=== PATIENT | male | born 1950 | race Caucasian/White ===

== ENCOUNTER → 2017-02-15 | Outpatient (CLI) | payer MEDICARE ==
--- NOTE | 2017-02-15 10:09 | CT ---
EXAMINATION TYPE: CT sinus wo con DATE OF EXAM: 02/15/2017 COMPARISON: NONE HISTORY: chronic sinusitis per order. Headaches, sinus infection, and fainting spells per patient. CT DLP: 628 mGycm. Automated Exposure Control for Dose Reduction was Utilized. TECHNIQUE: CT scan of the sinuses is performed without contrast, axial images are obtained, coronal r eformatted images are also reviewed. FINDINGS: There is complete opacification of right maxillary sinus with extension into the maxillary antrum causing obstruction of right-sided ostiomeatal complex. No suspicious bony destruction is seen . There is complete heterogeneous is slightly hyperdense filling of right anterior ethmoid and right frontal sinus. There is patchy opacity and mucosal thickening in small caliber right sphenoid sinus. Left-sided sinuses are clear. The ostiomeatal complex is patent on the left. Nasal septum is deviated to left of midline. Visualized portion of mastoid air cells show no abnormal opacification. The globes are intact bilate rally. IMPRESSION: Significant right-sided paranasal sinus disease, underlying obstructing mass is not exclu ded.
== END | disposition home or self-care (01) ==
LOC: RADCTMAIN 08:51
PROVIDERS: ATTEND Otolaryngology
DX: J32.9 Chronic sinusitis, unspecified (principal)
CPT/HCPCS: 70486

== ENCOUNTER → 2017-02-27 | Outpatient (CLI) | payer MEDICARE | END | disposition home or self-care (01) | LOC: LABPAT 09:10 | PROVIDERS: ATTEND Otolaryngology | DX: Z01.810 Encounter for preprocedural cardiovascular examination (principal) | CPT/HCPCS: 93005 ==

== ENCOUNTER 2017-04-13 08:48 | Day surgery (SDC) | payer MEDICARE ==
[2017-04-06 11:24] VITALS: BMI 31.8
[~2017-04-13 08:48] MED LIST: ACETAMINOPHEN TAB 500 MG TAB PO ONE; DEXAMETHASONE SOD PHOSPHATE 10 MG/ML 1 ML VIAL IV ONE; DEXAMETHASONE SOD PHOSPHATE 4 MG/ML 1 ML VIAL IV ONE; FAMOTIDINE 20 MG/2 ML VIAL IV ONE; HYDROmorphone 1 MG/ML 1 ML SYRINGE IVP PRN; LACTATED RINGERS 1,000 ML IV SCH; ONDANSETRON 4 MG/2 ML VIAL IVP ONE; ceFAZolin 2 GM in SODIUM CHLORIDE 0.9% 100 ML IVPB ONE
[2017-04-13] MEDS: OXYMETAZOLINE 0.05% NASL SPRAY 1 SPRAY BOTTLE NASAL ONE ×5 (09:29→10:02)
[2017-04-13 09:37] LABS: Glucose,Whole Blood 110 mg/dL (75-99)
[2017-04-13] MEDS ORDERED: MIDAZOLAM 2 MG/2 ML VIAL ONE (11:09)
[2017-04-13] MEDS ORDERED: HYDROmorphone (PF) 1 MG/ML ONE (11:09)
[2017-04-13] MEDS ORDERED: SUCCINYLCHOLINE CHLORIDE 100 MG/5 ML SYR IV ONE (11:09)
[2017-04-13] MEDS ORDERED: PROPOFOL 10 MG/ML 20 ML VIAL IV ONE (11:09)
[2017-04-13] MEDS ORDERED: LIDOCAINE 1% INJ 10MG/ML (20 ML MDV) ONE (11:09)
[2017-04-13] MEDS ORDERED: fentaNYL (PF) 50 MCG/ML 2 ML AMP ONE (11:09)
[2017-04-13] MEDS ORDERED: EPINEPHrine 1 MG/ML 1 ML AMP IRRIGATION ONE (11:33)
[2017-04-13] MEDS ORDERED: FLUORESCEIN STRIPS 1 MG STRIP MISCELLANE ONE (11:34)
[2017-04-13] MEDS ORDERED: BACITRACIN 500 UNIT/GM OINT 28.4 GM TUBE TOPICAL ONE (11:36)
[2017-04-13] MEDS ORDERED: LIDOCAINE 2%-EPI 1:100,000 20 ML VIAL SUBMUCOSAL ONE ×2 (11:37)
[2017-04-13] MEDS ORDERED: LACTATED RINGERS 1,000 ML IV ONE (12:58)
[2017-04-13 13:23] VITALS: TEMP 97.2
--- NOTE | 2017-04-13 13:34 | P.OP ---
Date of Procedure: 04/13/17 Preoperative Diagnosis: Deviated nasal septum Bilateral hypertrophy of nasal turbinates with obstruction Right-sided sinonasal polyps Chronic sinusitis Postoperative Diagnosis: Same Procedure(s) Performed: Bilateral functional endoscopic sinus surgery with polypectomy Septoplasty Bilateral outfracture compression and submucosal resection of the inferior turbinates Implants: Anesthesia: JOSE MA Surgeon: Celso Fisher Estimated Blood Loss (ml): 30 Pathology: other (Sinonasal) Condition: stable Disposition: PACU Indications for Procedure: This patient has had long-standing problems with sinusitis. He has constant facial pain and pressure congestion anosmia etc. his pain is bilateral maxillary and bilateral frontal and distribution. He blows yellow-green out of his nose and has failed medical therapy including antibiotics, cortisone nasal sprays etc. etc. He tried every aybf-qhj-letaltw medication with no improvement. CAT scan evaluation shows infection of the frontal maxillary ethmoid and sphenoid sinus with significant polyposis on the right. Deviated nasal septum was quite impressive to the left and the inferior turbinates were large and obstructive. After long discussion and a failure of antibiotics and nasal sprays, we've decided to proceed forward with bilateral functional endoscopic sinus surgery, polypectomy, septoplasty and turbinate surgery. All risks, benefits, and alternative therapies were discussed in detail. Consent was obtained and all questions were answered. Operative Findings: Patient had widespread sinonasal disease with polyps on the right side with obstruction. Deviated nasal septum to the left was noted. Large obstructive inferior turbinates were seen. Description of Procedure: This patient was taken to the operative room and placed in the supine position. A general inhalation anesthetic was administered to the patient by the department of anesthesia with a functioning IV line in place. The patient was monitored throughout the entire case by the department of anesthesia. The eyes were taped shut for protection. The patient was placed in a slight reverse Trendelenburg position. The patient had previously utilize Afrin nasal spray preoperatively. The nose was evaluated and the septum lateral nasal wall and inferior turbinates were injected with lidocaine 1% with epinephrine 1 100,000 bilaterally. Approximately 10 minutes were allowed wait for full vasoconstrictive effects to take place. At this point a caudal incision was made over the caudal portion of the left septum down to the mucoperichondrium. A mucoperichondrial flap was elevated on the left side and dissection was carried with use of tunnels posteriorly. We then made a crossover incision through the cartilage to the contralateral side and for the mucoperichondrial flap development was performed to the extent of visualization on the contralateral side. After the cartilage was freed with use of several crosshatching incisions and removal of some redundant strips of septal cartilage, the septum was straightened and placed back in the midline. The septum was sutured fixated to the ovarian groove. Excellent straightening occurred and the septum was visibly straight. Incision was closed with a 40 rapid Vicryl. We utilized a running nonlocking fashion for closure of the incision. A quilting stitch was used to reapproximate the septal flaps with use of a 40 rapid Vicryl. We then entered the nose with a 0 and 30 Gutiérrez pham endoscope. Previous to this we did inject the lateral nasal wall and middle turbinate and uncinate process with lidocaine 1% with epinephrine 1 100,000. Approximately 10 minutes were allowed wait for full vasoconstrictive effects to take place. Intranasal polyps were noted on the right. They were noted on the right side only. The intranasal polyps were removed with use of a microdebrider from the right side. With use of a microdebrider and a pediatric backbiter, we took down the uncinate process bilaterally. We then opened the maxillary sinuses bilaterally. We utilized a microdebrider for this and entered the maxillary sinuses and removed diseased tissue and polypoid tissue on the right and diseased tissue on the left. We opened both maxillary sinuses bilaterally and removed diseased tissue bilaterally but we had polyps removed from the right maxillary sinus.. After the maxillary sinuses were opened and the diseased tissue and polyps were removed we entered the ethmoid bulla and with use of a microdebrider and up-biting Pedro, we remove the anterior septations and remove diseased tissue from the anterior ethmoids with direct visualization. We then followed the fovea frontalis through the basal lamella and into the posterior ethmoid air cells and did a total ethmoidectomy with removal of polypoid material we removed all ethmoid septations. Once the ethmoids cells were all taken down we then entered the sphenoid sinus medially and inferiorly underneath the inferior attachment of the superior turbinate. The sphenoid sinus was opened entered and diseased tissue were removed bilaterally. We removed polyps from the right side This was done with a microdebrider and Desire. We then entered the frontal sinuses with a giraffe and up-biting Desire entered on the agar nasi cells. We open the frontal sinuses and removed sinus tissue and polypoid tissue that was diseased the polyps were noted on the right diseased tissue is noted bilaterally. We did irrigate the frontal sinuses and found possible bilaterally.. We explored the frontal sinuses bilaterally. To summarize all sinuses were open all sinuses were explored and we remove diseased tissue and polyps from the sphenoid maxillary and frontal sinuses. Polyps were removed from the nose. Ethmoid sinuses were opened totally. Nasal pore and xerogel was inserted and minimal bleeding was encountered. We reinspected the skull base there is no signs of any orbital penetration or signs of any intracranial penetration. The sugical site was reinspected after the nasal pore was placed and no bleeding was seen. Attention was then paid to the inferior turbinates. The bilateral inferior turbinates were hypertrophic and obstructive. We entered the anterior portion of the inferior turbinates with use of a microdebrider. We remove bone and submucosal elements with use of a microdebrider bilaterally. The inferior turbinates underwent a submucosal resection with removal of submucosal tissue and bone. We obtained a much better and normal in size for breathing. The inferior turbinates were then outfractured and compressed with a Tagged nasal elevator. Excellent airway was obtained and was symmetric bilaterally. No bleeding was encountered. Intranasal splints were inserted and fixated at the end of the case. We utilized Gunderson nasal splints. There will be removed and the patient returns to the office.
[2017-04-13] MEDS ORDERED: HYDROmorphone 1 MG/ML 1 ML SYRINGE IVP ONE ×3 (13:43→13:57)
[2017-04-13 13:51] VITALS: RESP 16
[2017-04-13] MEDS ORDERED: HYDROcodone/APAP 5-325MG 1 EACH TAB PO ONE (14:38)
[2017-04-13 14:49] VITALS: BP 148/71; PULSE 62
== END 2017-04-13 15:17 | disposition home or self-care (01) ==
LOC: OR 08:48
PROVIDERS: ATTEND Otolaryngology
DX: J32.9 Chronic sinusitis, unspecified (principal); J33.8 Other polyp of sinus; J34.3 Hypertrophy of nasal turbinates; J34.2 Deviated nasal septum; E07.9 Disorder of thyroid, unspecified; Z79.82 Long term (current) use of aspirin; Z79.899 Other long term (current) drug therapy
CPT/HCPCS: 88305; 88331; 88300; 87070; 87205; 87075; 30520; 30140; 31267; 31255; 31288; 31276; J2250; J0171; J1100; J0690; J2405; J2001; J3010; J1170; J0330; J2704

== ENCOUNTER → 2017-06-17 | Outpatient (CLI) | payer MEDICARE ==
--- NOTE | 2017-06-17 17:09 | XR ---
EXAMINATION TYPE: XR sinus DATE OF EXAM: 06/17/2017 COMPARISON: NONE HISTORY: Frontal pain TECHNIQUE: 4 view paranasal sinus study FINDINGS: There appears to be mucosal thickening through the maxillary sinuses bilaterally. Suspiciou s air-fluid level may be within the left maxillary sinus. Frontal sinuses appear clear. Sphenoid sinu ses are clear. The right sphenoid sinus was previously opacified prior to the surgery based on the presurgical CT of 02/15/2017. Opacification through the right frontal sinus is not appreciated currently. IMPRESSION: 1. Suspicion of acute left maxillary sinusitis. Some chronic right maxillary sinusitis may be presen t. 2. Suspicious changes not clearly identified in the frontal region. CT paranasal sinus study can be p erformed for closer evaluation.
== END | disposition home or self-care (01) ==
LOC: RADXRMAIN 12:29
PROVIDERS: ATTEND Otolaryngology
DX: J32.1 Chronic frontal sinusitis (principal)
CPT/HCPCS: 70220

== ENCOUNTER → 2022-07-19 | Outpatient (CLI) | payer MEDICARE ==
--- NOTE | 2022-07-19 15:20 | CT ---
EXAMINATION TYPE: CT sinus wo con DATE OF EXAM: 07/19/2022 COMPARISON: 02/15/2017 HISTORY: CHRONIC SINUSITIS CT DLP: 642.50 mGycm. Automated Exposure Control for Dose Reduction was Utilized. TECHNIQUE: CT scan of the sinuses is performed without contrast, axial images are obtained, coronal r eformatted images are also reviewed. FINDINGS: Postsurgical change involving the ostium of the maxillary sinuses bilaterally with the mode rate mucosal thickening bilaterally greater on the left. No air-fluid levels. There is mild to moderate mucosal thickening of the ethmoid air cells. Sphenoid sinus is normal aerat ion. Frontal sinus of normal aeration. Calvarium intact. Orbits are symmetric. Nasopharynx is symmetric. Oropharynx symmetric. Dental artifa ct noted. Parotid glands are symmetric. Intracranial structures are symmetric.. The ostium of the bi lateral maxillary sinus is patent bilaterally on the coronal images. Visualized portion of mastoid air cells show no abnormal opacification. The globes are intact bilate rally. IMPRESSION: 1. Postsurgical changes with findings compatible with mild to moderate chronic appearing sinusitis. N o air-fluid levels to suggest acute sinusitis. 2. Ostium of the maxillary sinuses demonstrates postsurgical change which remains widely patent.
== END | disposition home or self-care (01) ==
LOC: RADCTMAIN 14:44
PROVIDERS: ATTEND Otolaryngology
DX: J32.9 Chronic sinusitis, unspecified (principal)
CPT/HCPCS: 70486

== ENCOUNTER 2023-01-12 09:51 | Day surgery (SDC) | payer MEDICARE ==
[2023-01-09 10:50] VITALS: BMI 35.2
[~2023-01-12 09:51] MED LIST changes: -ACETAMINOPHEN TAB 500 MG TAB PO ONE; -DEXAMETHASONE SOD PHOSPHATE 10 MG/ML 1 ML VIAL IV ONE; -DEXAMETHASONE SOD PHOSPHATE 4 MG/ML 1 ML VIAL IV ONE; -FAMOTIDINE 20 MG/2 ML VIAL IV ONE; +FAMOTIDINE 20 MG/2 ML VIAL IV PRN; -HYDROmorphone 1 MG/ML 1 ML SYRINGE IVP PRN; -LACTATED RINGERS 1,000 ML IV SCH; -ONDANSETRON 4 MG/2 ML VIAL IVP ONE; +ONDANSETRON 4 MG/2 ML VIAL IVP PRN; -ceFAZolin 2 GM in SODIUM CHLORIDE 0.9% 100 ML IVPB ONE; +metroNIDAZOLE-NS PMX 500 MG in SALINE 1 100ML.BAG IVPB PRN
[2023-01-12] MEDS ORDERED: DEXAMETHASONE SOD PHOSPHATE 4 MG/ML 1 ML VIAL IV ONE (10:11)
[2023-01-12] MEDS ORDERED: LACTATED RINGERS 1,000 ML IV SCH (10:11)
[2023-01-12] MEDS ORDERED: ONDANSETRON 4 MG/2 ML VIAL IVP ONE (10:11)
[2023-01-12] MEDS: OXYMETAZOLINE 0.05% NASL SPRAY 1 SPRAY BOTTLE EA NOSTRIL PRN ×5 (10:25→10:45)
[2023-01-12] MEDS ORDERED: PROPOFOL 10 MG/ML 20 ML VIAL IV ONE (11:55)
[2023-01-12] MEDS ORDERED: MIDAZOLAM 2 MG/2 ML VIAL ONE (11:55)
[2023-01-12] MEDS ORDERED: LIDOCAINE 2% INJ 20 MG/ML (2 ML VIAL) ONE (11:55)
[2023-01-12] MEDS ORDERED: fentaNYL (PF) 50 MCG/ML 2 ML AMP ONE (11:55)
[2023-01-12] MEDS ORDERED: SUCCINYLCHOLINE CHLORIDE 200 MG/10 ML VIAL IV ONE (11:55)
[2023-01-12] MEDS ORDERED: EPINEPHrine 1 MG/ML (MDV) 30 ML VIAL TOPICAL ONE ×2 (11:57→12:29)
[2023-01-12] MEDS ORDERED: LIDOCAINE 2%-EPI 1:100,000 20 ML VIAL SQ ONE ×2 (11:57→12:29)
[2023-01-12] MEDS ORDERED: FLUORESCEIN STRIPS 1 MG STRIP MISCELLANE ONE (12:29)
[2023-01-12] MEDS ORDERED: LACTATED RINGERS 1,000 ML IV ONE (12:51)
[2023-01-12 13:07] VITALS: TEMP 96.8
--- NOTE | 2023-01-12 13:09 | P.OP ---
Date of Procedure: 01/12/23 Preoperative Diagnosis: Chronic maxillary ethmoid sinusitis with polyposis Postoperative Diagnosis: Same Procedure(s) Performed: Functional endoscopic sinus surgery with total ethmoidectomy and maxillary antrostomies bilaterally with polypectomy Anesthesia: MAURA Surgeon: Celso Fisher Estimated Blood Loss (ml): 10 Pathology: other (Sinonasal) Condition: stable Disposition: PACU Indications for Procedure: Patient has chronic maxillary and ethmoid sinusitis with polypoid disease. He's failed medical therapy. Is dupexint with no improvement. His failed Flonase nasal spray, irrigations etc. and is here for recheck. Operative Findings: Patient was found have chronic sinusitis and polypoid degeneration the maxillary and ethmoid sinuses bilaterally Description of Procedure: Patient was taken to the operative room and placed in the supine position. A general inhalation anesthetic was administered the patient by mask and subsequently intubated with a cuffed endotracheal tube by the department of anesthesia with a functioning IV line in place. Patient was monitored throughout the entire case by the department of anesthesia. The nose was anesthetized with lidocaine 1% with epinephrine 1 100,010 minutes were allowed wait for full vasoconstrictive effects to take place. At this time we entered the maxillary sinuses underneath the middle turbinates and open up the maxillary sinuses with a Ulices we utilized a 0 Gutiérrez pham scopes throughout the entire procedure. After the x-ray sinuses were opened below the inferior turbinates bilaterally polyps and diseased tissue was removed from the floor of the maxillary sinuses bilaterally. We can we utilized a microdebrider for that procedure. We then entered the maxillary sinuses above the inferior turbinates and we remove diseased tissue bilaterally and suctioned very lip material from the maxillary sinuses with opening. After the maxillary sinuses were opened bilaterally and polypoid disease was removed we did a total ethmoidectomy with removal of polypoid disease. We removed polyps off the middle turbinates bilaterally. We sutured fixated to the middle turbinates to the septum and placed xerogel underneath the middle turbinates. We removed all ethmoid septations bilaterally and a total ethmoidectomy with removal of polypoid material xerogel was placed nasal pore was placed to hold the xerogel in place we then reinspected the skull base and the sinuses and the sinuses were opened and otherwise doing well. Patient was taken to postanesthesia recovery in excellent condition follow-up will be next week.
[2023-01-12] MEDS: HYDROmorphone 0.5 MG/0.5 ML SYRINGE IVP PRN ×3 (13:14→13:29)
[2023-01-12] MEDS: fentaNYL (PF) 50 MCG/ML 2 ML AMP IVP ONE ×3 (13:36→13:46)
[2023-01-12 14:19] VITALS: PULSE 69; RESP 18
[2023-01-12] MEDS ORDERED: Acetaminophen-Codeine 300-30mg TAB PO ONE (14:28)
[2023-01-12] MEDS ORDERED: Acetaminophen-Codeine 300-30mg TAB ONE (14:28)
[2023-01-12 14:40] VITALS: BP 136/72
== END 2023-01-12 15:16 | disposition home or self-care (01) ==
LOC: OR 09:51
PROVIDERS: ATTEND Otolaryngology
DX: J32.0 Chronic maxillary sinusitis (principal); J32.2 Chronic ethmoidal sinusitis; Z90.49 Acquired absence of other specified parts of digestive tract; Z98.890 Other specified postprocedural states; Z87.891 Personal history of nicotine dependence; E03.9 Hypothyroidism, unspecified; Z79.890 Hormone replacement therapy; Z79.899 Other long term (current) drug therapy
CPT/HCPCS: 88305; 31255; 31267; J0171; J2250; J0330; J1100; J0690; J2405; J3010; J2704; J1170; J2001

== ENCOUNTER 2023-10-20 06:46 | Day surgery (SDC) | payer MEDICARE ==
[2023-10-19 11:07] VITALS: BMI 34.5
[2023-10-20] MEDS ORDERED: MIDAZOLAM 2 MG/2 ML VIAL IV PRN (07:00)
[2023-10-20] MEDS ORDERED: HYDROmorphone 0.5 MG/0.5 ML SYRINGE IVP PRN (07:00)
[2023-10-20 07:44] VITALS: RESP 16
--- NOTE | 2023-10-20 07:48 | P.GSHP ---
History of Present Illness H&P Date: 10/20/23 Chief Complaint: Umbilical hernia 73-year-old female last seen in June. Patient with increasing size of umbilical hernia. Mild soreness there. No history of previous hernias. Past Medical History Past Medical History: Thyroid Disorder Additional Past Medical History / Comment(s): sinus problems, hypothyroidism History of Any Multi-Drug Resistant Organisms: None Reported Past Surgical History: Appendectomy, Joint Replacement Additional Past Surgical History / Comment(s): COLONOSCOPY. RT TKA WITH REVISION. BILAT LIVIER. SINUS SX Past Anesthesia/Blood Transfusion Reactions: No Reported Reaction Smoking Status: Former smoker - Past Family History Sister(s) Family Medical History: COPD Medications and Allergies Home Medications Medication Instructions Recorded Confirmed Type Levothyroxine Sodium [Synthroid] 200 mcg PO QAM 04/06/17 10/19/23 History Acetaminophen [Tylenol] 650 mg PO Q4H PRN 10/19/23 10/19/23 History Vit C/E/Zn/Coppr/Lutein/Zeaxan 1 cap PO DAILY 10/19/23 10/19/23 History [Preservision Areds 2 Softgel] Allergies Allergy/AdvReac Type Severity Reaction Status Date / Time environmental AdvReac Unknown Uncoded 10/20/23 07:24 Surgical - Exam Vital Signs Temp Pulse Resp BP Pulse Ox 97.5 F L 58 L 16 139/82 93 L 10/20/23 07:33 10/20/23 07:33 10/20/23 07:33 10/20/23 07:33 10/20/23 07:33 Physical exam: General: Well-developed, well-nourished HEENT: Normocephalic, sclerae nonicteric Abdomen: Nontender, nondistended, diastases recti, reducible small to moderate- sized umbilical hernia Extremities: No edema Neuro: Alert and oriented Assessment and Plan (1) Umbilical hernia Narrative/Plan: 73-year-old male with symptomatic umbilical hernia. Will proceed with open repair umbilical hernia with mesh. Risks of bleeding, infection, recurrence, bladder and bowel injury, numbness, nerve injury were discussed with the patient. The patient understands and wishes to proceed. Current Visit: Yes Status: Acute Code(s): K42.9 - UMBILICAL HERNIA WITHOUT OBSTRUCTION OR GANGRENE SNOMED Code(s): 812018624
[2023-10-20] MEDS: MIDAZOLAM 2 MG/2 ML VIAL IVP ONE (08:15)
[2023-10-20] MEDS: LACTATED RINGERS 1,000 ML IV SCH (08:28)
[2023-10-20] MEDS: ONDANSETRON 4 MG/2 ML VIAL IVP ONE (08:29)
[2023-10-20] MEDS: DEXAMETHASONE SOD PHOSPHATE 4 MG/ML 1 ML VIAL IV ONE (08:29)
[2023-10-20] MEDS: ACETAMINOPHEN TAB 500 MG TAB PO PRN (08:29)
[2023-10-20] MEDS: HEPARIN SODIUM,PORCINE 5,000 UNIT/ML 1 ML VIAL SQ PRN (08:29)
[2023-10-20] MEDS ORDERED: PROPOFOL 10 MG/ML 20 ML VIAL IV ONE (08:57)
[2023-10-20] MEDS ORDERED: ROPIVACAINE 5 MG/ML 30 ML VIAL ONE (08:57)
[2023-10-20] MEDS ORDERED: NEOSTIGMINE 1 MG/ML 10 ML VIAL ONE (08:57)
[2023-10-20] MEDS ORDERED: ROCURONIUM 10 MG/ML (5 ML VIAL) IV ONE (08:57)
[2023-10-20] MEDS ORDERED: SUCCINYLCHOLINE CHLORIDE 200 MG/10 ML VIAL IV ONE (08:57)
[2023-10-20] MEDS ORDERED: DEXAMETHASONE SOD PHOSPHATE 4 MG/ML 1 ML VIAL ONE (08:57)
[2023-10-20] MEDS ORDERED: GLYCOPYRROLATE 0.2 MG/ML 2 ML VIAL ONE (08:57)
[2023-10-20] MEDS ORDERED: LIDOCAINE 1% INJ 10MG/ML (20 ML MDV) ONE (08:57)
[2023-10-20] MEDS ORDERED: fentaNYL (PF) 50 MCG/ML 2 ML AMP ONE (08:57)
[2023-10-20] MEDS: BUPIVACAINE (PF) 0.25% 30 ML VIAL SQ ONE ×2 (09:16→09:45)
--- NOTE | 2023-10-20 10:23 | P.OP ---
Date of Procedure: 10/20/23 Procedure(s) Performed: PREOPERATIVE DIAGNOSIS: Reducible umbilical hernia POSTOPERATIVE DIAGNOSIS: Same PROCEDURE: Open repair of umbilical hernia with mesh SURGEON: Dr. Sepulveda ANESTHESIA: General OPERATIVE PROCEDURE DETAILS: The patient was placed in the operating table in the supine position. A right sided periumbilical incision was made using the scalpel. The subcutaneous tissues were dissected bluntly and with cautery. The hernia sac was identified. The umbilical attachments to the fascia were divided using electrocautery. The hernia sac was excised. The defect in the fascia measured 12 x 6 mm. The fat overlying the fascia was dissected. No additional defects were seen. The preperitoneal space was then dissected using blunt dissection and electrocautery. The 4.3 cm ventral ex mesh was placed beneath the fascia and sutured in place using trans-fascial 0 Ethibond sutures. The defect was closed using interrupted vest over pants 0 Ethibond mattress sutures. The subcutaneous tissues were reapproximated using inverted 2-0 & 3-0 Vicryl sutures. The umbilicus was tacked back down to the fascia using a 2-0 Vicryl suture. The skin was closed using 4-0 Monocryl sutures. Skin glue and sterile dressings were then applied. HERNIA CHARACTERISTICS: Length: 6 mm Width: 12 mm Type: Umbilical TYPE OF MESH USED: Ventral X LOCATION OF MESH: [place] FIXATION: 0 Ethibond PREOPERATIVE DISCUSSION ON SMOKING CESSASTION: Yes PREOPERATIVE DISCUSSION ON MORBID OBESITY: Yes PREOPERATIVE DISCUSSION ON APPROPRIATE USE OF NARCOTIC USE: Yes PREOPERATIVE EDUCATION: Multi Modal, Smoking Cessation and Weight Loss with BMI over 35. DISPOSITION: Stable to recovery room
[2023-10-20 10:29] VITALS: TEMP 98
[2023-10-20] MEDS: LACTATED RINGERS 1,000 ML IV ONE (11:05)
[2023-10-20] MEDS ORDERED: ACETAMINOPHEN TAB 325 MG TAB PO SCH (12:00)
[2023-10-20 12:37] VITALS: BP 140/75; PULSE 67
[2023-10-20] MEDS ORDERED: IBUPROFEN 600 MG TAB PO SCH (13:30)
== END 2023-10-20 12:09 | disposition home or self-care (01) ==
LOC: OR 06:46
PROVIDERS: ATTEND Surgery
DX: K42.9 Umbilical hernia without obstruction or gangrene (principal); E03.9 Hypothyroidism, unspecified; Z79.890 Hormone replacement therapy; Z87.891 Personal history of nicotine dependence; Z90.49 Acquired absence of other specified parts of digestive tract
CPT/HCPCS: 64488; 49591; C1781; J2250; J0330; J1644; J1100; J2710; J0690; J2405; J2001; J3010; J2795; J2704; J0665

== ENCOUNTER 2024-01-29 18:18 | Emergency (ER) | payer MEDICARE ==
--- NOTE | 2024-01-29 18:54 | ED ---
Fall HPI - General Source: patient, RN notes reviewed Mode of arrival: wheelchair Limitations: no limitations <Eva Aguirre - Last Filed: 01/29/24 18:53> <Rafael Anthony - Last Filed: 01/30/24 01:56> - General Chief Complaint: Fall Stated Complaint: Fall/Back Pain Time Seen by Provider: 01/29/24 18:53 - History of Present Illness Initial Comments: Quick note: 73-year-old male presented to ER with a chief complaint of a fall. Patient reports approximately 1 week ago he was balancing on a telephone pole and lost his balance. He states he fell on his right side. He denies any head injury or loss of consciousness. Denies blood thinner use. Patient reports most pain in lumbar spine and right ribs. Patient denies any shortness of breath, saddle paresthesias, bowel or bladder incontinence. (Eva Aguirre) Patient is a 73-year-old male who presents emergency department after a fall. Originally seen as a quick note. Mechanical fall, fell 7 to 10 days ago. Approximately 3 feet off the ground. Landed on his right side. Since that time has had severe lower back pain, right rib pain, right abdominal pain. He is not on blood thinners. No loss of consciousness. Did not hit his head. Presents because the pain is not improving. Presents for further evaluation at this ti nh. Obvious bruising. Pain worse with movement. (Rafael Anthony) - Related Data Home Medications Medication Instructions Recorded Confirmed Levothyroxine Sodium [Synthroid] 200 mcg PO QAM 04/06/17 10/19/23 Acetaminophen [Tylenol] 650 mg PO Q4H PRN 10/19/23 10/19/23 Vit C/E/Zn/Coppr/Lutein/Zeaxan 1 cap PO DAILY 10/19/23 10/19/23 [Preservision Areds 2 Softgel] Previous Rx's Medication Instructions Recorded oxyCODONE HCL [OxyIR] 5 mg PO Q6H PRN 3 Days #6 tab 10/20/23 Lidocaine 5% Patch [Lidoderm 5% 1 patch TOPICAL DAILY PRN 14 Days 01/30/24 Patch] #14 patch methocarbamoL [Robaxin-750] 1,500 mg PO TID PRN 7 Days #42 tab 01/30/24 Allergies Allergy/AdvReac Type Severity Reaction Status Date / Time environmental AdvReac Unknown Uncoded 01/29/24 18:28 Review of Systems ROS Other: All systems not noted in ROS Statement are negative. <Eva Aguirre - Last Filed: 01/29/24 18:53> ROS Other: All systems not noted in ROS Statement are negative. <Rafael Anthony - Last Filed: 01/30/24 01:56> ROS Statement: Those systems with pertinent positive or pertinent negative responses have been documented in the HPI. Review of Systems: CONST: Denies fever EYES: Denies blurry vision ENT: Denies nasal congestion C/V: Denies Chest pain RESP: Denies shortness of breath GI: Denies abdominal pain : Denies dysuria SKIN: Denies rash. MSK: Endorses joint pain NEURO: Denies headache (Rafael Anthony) Past Medical History Past Medical History: Thyroid Disorder Additional Past Medical History / Comment(s): sinus problems, hypothyroidism History of Any Multi-Drug Resistant Organisms: None Reported Past Surgical History: Appendectomy, Joint Replacement Additional Past Surgical History / Comment(s): COLONOSCOPY. RT TKA WITH REVISION. BILAT LIVIER. SINUS SX Past Anesthesia/Blood Transfusion Reactions: No Reported Reaction Past Psychological History: No Psychological Hx Reported Smoking Status: Former smoker Past Alcohol Use History: None Reported Past Drug Use History: None Reported - Past Family History Sister(s) Family Medical History: COPD <Eva Aguirre - Last Filed: 01/29/24 18:53> General Exam Limitations: no limitations <Eva Aguirre - Last Filed: 01/29/24 18:53> <Rafael Anthony - Last Filed: 01/30/24 01:56> - General Exam Comments Initial Comments: Visual Physical Exam Vital signs reviewed General: Well-appearing, nontoxic, no acute distress. Head: Normocephalic, atraumatic Eyes: PERRLA, EOMI ENT: Airway patent Chest: Nonlabored breathing Skin: No visual rash, normal skin tone Neuro: Alert and oriented 3 Musculoskeletal: No gross abnormalities (Eva Aguirre) General: Appears in mild to moderate distress secondary to pain. HEAD: Normal with no signs of head trauma. Negative Pearson sign. Negative raccoon eyes. EYES: PERRLA, EOMI, conjunctiva normal, no discharge. ENT: Hearing grossly intact, normal oropharynx. RESPIRATORY: Clear breath sounds bilaterally. No wheezes, rales, or rhonchi. C/V: Regular rate and rhythm. S1 and S2 auscultated, no edema, peripheral pulses 2+ and intact throughout ABD: Abd is soft, nontender, nondistended EXT: Normal range of motion, no obvious deformity. Tenderness palpation over the anterior right ribs, paraspinal muscles of the lower lumbar spine and somewhat in the mid lumbar spine. No step-offs or deformities of the spine appreciated. No T or C-spine tenderness to palpation. Some right-sided abdominal discomfort with no skin changes. SKIN: No rashes or lesions observed on exposed skin. NEURO: Alert and oriented x 4. Cranial nerves II-XII intact. No focal sensory or strength deficits. GCS of 15. (Rafael Anthony) Course Vital Signs 01/29/24 01/29/24 01/30/24 18:24 22:24 00:22 Temperature 98 F Pulse Rate 61 48 L 58 L Respiratory 18 18 16 Rate Blood Pressure 137/80 164/88 167/91 O2 Sat by Pulse 94 L 97 96 Oximetry Medical Decision Making <Eva Aguirre - Last Filed: 01/29/24 18:53> - Lab Data Result diagrams: 01/29/24 21:19 01/29/24 21:19 <Rafael Anthony - Last Filed: 01/30/24 01:56> - Medical Decision Making I performed the quick note portion of this chart. Electronically signed by Eva Aguirre PA-C (Eva Aguirre) Was pt. sent in by a medical professional or institution ([facility], SECONDARY SET UP MAN, urgent care, hospital, or halfway...) When possible be specific @ -No Did you speak to anyone other than the patient for history (EMS, parent, family, police, friend...)? What history was obtained from this source @ -No Did you review nursing and triage notes (agree or disagree)? Why? @ -I reviewed and agree with nursing and triage notes Were old charts reviewed (outside hosp., previous admission, EMS record, old EKG, old radiological studies, urgent care reports/EKG's, halfway records)? Report findings @ -No old charts were reviewed Differential Diagnosis (chest pain, altered mental status, abdominal pain women, abdominal pain men, vaginal bleeding, weakness, fever, dyspnea, syncope, headache, dizziness, GI bleed, back pain, seizure, CVA, palpatations, mental health, musculoskeletal)? @ -Differential Musculoskeletal Muscular strain, contusion, ligament sprain, fracture, arthritis, septic arthritis, bursitis, cellulitis, muscle spasm, nerve compression, DVT, arterial occlusion, herpes zoster, electrolyte abnormality, tumor.... This is not meant to be in all inclusive list EKG interpreted by me (3pts min.). @ -None done X-rays interpreted by me (1pt min.). @ -Rib and chest x-ray unremarkable. Lumbar spine x-ray unremarkable. No obvious acute injuries. Degenerative changes of the lumbar spine are present. CT interpreted by me (1pt min.). @ -CT chest abdomen pelvis eventually read as showing a T7 compression fracture and chronic left rib fracture but no obvious acute process otherwise. U/S interpreted by me (1pt. min.). @ -None done What testing was considered but not performed or refused? (CT, X-rays, U/S, labs)? Why? @ -None What meds were considered but not given or refused? Why? @ -None Did you discuss the management of the patient with other professionals (professionals i.e. , PA, SECONDARY SET UP MAN, lab, RT, psych nurse, social sciences professor, aircraft machinist helper, teacher, attendance officer, case consultant)? Give summary @ -No Was smoking cessation discussed for >3mins.? @ -No Was critical care preformed (if so, how long)? @ -No Were there social determinants of health that impacted care today? How? (Homelessness, low income, unemployed, alcoholism, drug addiction, transportation, low edu. Level, literacy, decrease access to med. care, fdc, rehab)? @ -No Was there de-escalation of care discussed even if they declined (Discuss DNR or withdrawal of care, Hospice)? DNR status @ -No What co-morbidities impacted this encounter? (DM, HTN, Smoking, COPD, CAD, Cancer, CVA, ARF, Chemo, Hep., AIDS, mental health diagnosis, sleep apnea, morbi d obesity)? @ -None Was patient admitted / discharged? Hospital course, mention meds given and rout e, prescriptions, significant lab abnormalities, going to OR and other pertinent info. @ -Based on the patient's presentation and physical exam, due to the patient's severe pain, I did recommend CT imaging at this time. He was in agreement this plan. He will receive IV analgesia medications as well as basic labs. Patient was in agreement this plan. Vital signs are within acceptable limits. Laboratory studies remarkable for mild anemia. Remainder the labs unremarkable.Laboratory studies unremarkable. Discussed the results of imaging which shows the compression fracture at T7. Discussed he probably also has some rib contusions on the right side. Compression fracture is nonoperative considering there is no evidence of retropulsion. He expressed understanding. I will Provide him contact info for follow-up with orthopedics as well as analgesia medications for home but recommended follow-up with PCP. Will also be given an incentive spirometer for rib contusions. He was in agreement this plan. Vital signs within acceptable limits. I will provide the patient with a prescription for starter pack of Tylenol 3, Robaxin, lidocaine patches. I instructed the patient to follow up with their PCP in the next 1-3 days. I provided contact information for follow up with orthopedics. I explained that the patient should return to the emergency department if they experience any worsening symptoms. Strict return precautions were discussed with the patient. The patient expressed understanding of these instructions. I answered all questions that the patient had. The patient was dis charged home in good condition with their prescriptions and follow up information. Undiagnosed new problem with uncertain prognosis? @ -No Drug Therapy requiring intensive monitoring for toxicity (Heparin, Nitro, Insulin, Cardizem)? @ -No Were any procedures done? @ -No Diagnosis/symptom? @ -Fall, T7 compression fracture, right-sided rib contusions Acute, or Chronic, or Acute on Chronic? @ -Acute Uncomplicated (without systemic symptoms) or Complicated (systemic symptoms)? @ -Complicated Side effects of treatment? @ -None Exacerbation, Progression, or Severe Exacerbation] @ -No Poses a threat to life or bodily function? @ -Unlikely (Rafael Anthony) - Lab Data Lab Results 01/29/24 01/29/24 01/29/24 Range/Units 21:19 21:19 21:19 WBC 3.8 (3.8-10.6) k/uL RBC 3.33 L (4.30-5.90) m/uL Hgb 11.6 L (13.0-17.5) gm/dL Hct 34.1 L (39.0-53.0) % MCV 102.5 H (80.0-100.0) fL MCH 34.8 (25.0-35.0) pg MCHC 34.0 (31.0-37.0) g/dL RDW 14.5 (11.5-15.5) % Plt Count 202 (150-450) k/uL MPV 8.4 Neutrophils % 56 % Lymphocytes % 35 % Monocytes % 3 % Eosinophils % 4 % Basophils % 1 % Neutrophils # 2.2 (1.3-7.7) k/uL Lymphocytes # 1.3 (1.0-4.8) k/uL Monocytes # 0.1 (0-1.0) k/uL Eosinophils # 0.1 (0-0.7) k/uL Basophils # 0.0 (0-0.2) k/uL Macrocytosis Slight PT 13.0 H (10.0-12.5) sec INR 1.2 H (<1.2) APTT 29.6 (22.0-30.0) sec Sodium 139 (137-145) mmol/L Potassium 4.3 (3.5-5.1) mmol/L Chloride 103 (98-107) mmol/L Carbon Dioxide 29 (22-30) mmol/L Anion Gap 7 mmol/L BUN 18 (9-20) mg/dL Creatinine 1.14 (0.66-1.25) mg/dL Est GFR (CKD-EPI)AfAm 73 (>60 ml/min/1.73 sqM) Est GFR (CKD-EPI)NonAf 63 (>60 ml/min/1.73 sqM) Glucose 92 (74-99) mg/dL Calcium 9.9 (8.4-10.2) mg/dL Disposition <Eva Aguirre - Last Filed: 01/29/24 18:53> Is patient prescribed a controlled substance at d/c from ED?: No Time of Disposition: 01:53 <Rafael Anthony - Last Filed: 01/30/24 01:56> Clinical Impression: Fall, Compression fracture of T7 vertebra, Contusion of rib on right side Disposition: HOME SELF-CARE Condition: Good Instructions (If sedation given, give patient instructions): Fall Prevention f or Older Adults (ED), Vertebral Compression Fracture (ED), Rib Contusion (ED) Prescriptions: Lidocaine 5% Patch [Lidoderm 5% Patch] 1 patch TOPICAL DAILY PRN 14 Days #14 patch PRN Reason: Pain methocarbamoL [Robaxin-750] 1,500 mg PO TID PRN 7 Days #42 tab PRN Reason: Pain Referrals: Gualberto Echols DO [Primary Care Provider] - 1-2 days Ana Valdovinos DO [Doctor of Osteopathic Medicine] - 1-2 days
--- NOTE | 2024-01-29 19:59 | XR ---
EXAMINATION TYPE: XR ribs RT w pa chest xray DATE OF EXAM: 01/29/2024 7:51 PM CLINICAL INDICATION:Male, 73 years old with history of fall and pain; [facility] COMPARISON: None TECHNIQUE: XR ribs RT w pa chest xray; Frontal and oblique views of the ribs with frontal chest radio graph. FINDINGS: The ribs have a normal appearance. No evidence of fracture. Overall, the lungs are clear. The cardiac silhouette is normal in size. The remaining osseous structures are intact. IMPRESSION: No displaced rib fracture visualized.
--- NOTE | 2024-01-29 20:01 | XR ---
EXAMINATION TYPE: XR lumbar spine 2 or 3V DATE OF EXAM: 01/29/2024 7:51 PM CLINICAL INDICATION:Male, 73 years old with history of fall and pain; COMPARISON: None TECHNIQUE: XR lumbar spine 2 or 3V - Frontal, lateral and coned in L5-S1 lateral views of the spine. FINDINGS: No evidence of any acute osseous pathology. No evidence of loss of vertebral body height i s seen. There is grade 1 anterolisthesis of L4 and L5. Alignment of the lumbar vertebral bodies. Scat tered disc space narrowing. Multilevel marginal osteophyte formation throughout the visualized spine. There is facet joint arthropathy throughout the spine. Scattered at least mild neural foraminal sten osis. Atherosclerosis of the arterial vascular IMPRESSION: 1. No acute fracture. 2. Mild to moderate multilevel disc degeneration.
[2024-01-29] MEDS: MORPHINE SULFATE 4 MG/ML SYRINGE IVP STA (21:24)
[2024-01-29] MEDS: SODIUM CHLORIDE 0.9% 1,000 ML IV STA (21:25)
[2024-01-29 22:06] LABS: INR 1.2 (<1.2); Partial Thromboplastin Time 29.6 sec (22.0-30.0)
[2024-01-29 22:10] LABS: African American GFR (CKD) 73 (>60 ml/min/1.73 sqM); Anion Gap 7 mmol/L; Blood Urea Nitrogen 18 mg/dL (9-20); Calcium 9.9 mg/dL (8.4-10.2); Carbon Dioxide 29 mmol/L (22-30); Chloride 103 mmol/L (98-107); Glucose 92 mg/dL (74-99); Non-African American GFR(CKD) 63 (>60 ml/min/1.73 sqM); Potassium 4.3 mmol/L (3.5-5.1); Sodium 139 mmol/L (137-145)
[2024-01-29 22:12] LABS: Basophils % (A) 1 %; Eosinophils # (A) 0.1 k/uL (0-0.7); Eosinophils % (A) 4 %; HCT 34.1 % (39.0-53.0); HGB 11.6 gm/dL (13.0-17.5); Lymphocytes # (A) 1.3 k/uL (1.0-4.8); Lymphocytes % (A) 35 %; MCH 34.8 pg (25.0-35.0); MCV 102.5 fL (80.0-100.0); Macrocytosis Slight; Mean Platelet Volume 8.4; Monocytes # (A) 0.1 k/uL (0-1.0); Monocytes % (A) 3 %; Neutrophils # (A) 2.2 k/uL (1.3-7.7); Neutrophils % (A) 56 %; Platelet Count 202 k/uL (150-450); RBC 3.33 m/uL (4.30-5.90); RDW 14.5 % (11.5-15.5); WBC 3.8 k/uL (3.8-10.6)
[2024-01-29] MEDS: HYDROmorphone 1 MG/ML 1 ML SYRINGE IVP STA (23:27)
[2024-01-30 00:26] VITALS: RESP 16
[2024-01-30] MEDS: HYDROmorphone 1 MG/ML 1 ML SYRINGE IVP STA (01:22)
--- NOTE | 2024-01-30 01:36 | CT ---
EXAM: CT Chest With Intravenous Contrast CLINICAL HISTORY: Fall, continued abd pain and rib pain TECHNIQUE: Axial computed tomography images of the chest with intravenous contrast. CTDI is 17.2 mGy and DLP is 1304 mGy-cm. This CT exam was performed using one or more of the following dose reduction techniques: automated exposure control, adjustment of the mA and/or kV according to patient size, and/or use of iterative reconstruction technique. COMPARISON: No relevant prior studies available. FINDINGS: Lungs: Minimal dependent atelectasis. No focal infiltrate. Pleural space: Unremarkable. No pneumothorax. No pleural effusion. Heart: Unremarkable. No cardiomegaly. No significant pericardial effusion. Coronary artery calcifications. Bones/joints: Deformity of the anterior aspect of the left eighth rib with possible periosteal reaction, consistent with a minimally displaced subacute or older fracture (sagittal series 203 image 126). Moderate approximately 40% anterior superior wedge compression fracture of the T7 vertebral body without posterior retropulsion (sagittal series 203 image 77) with superior sclerosis suggesting an acute fracture. Soft tissues: Unremarkable. Vasculature: Atherosclerotic vascular calcifications. No thoracic aortic aneurysm or dissection. Lymph nodes: Unremarkable. No enlarged lymph nodes. IMPRESSION: Moderate approximately 40% anterior superior wedge compression fracture of the T7 vertebral body without posterior retropulsion with superior sclerosis suggesting an acute fracture. Deformity of the anterior aspect of the left eighth rib with possible periosteal reaction, consistent with a minimally displaced subacute or older fracture. No definite acute right-sided rib fracture identified. EXAM: CT Abdomen and Pelvis With Intravenous Contrast CLINICAL HISTORY: Fall, continued abd pain and rib pain TECHNIQUE: Axial computed tomography images of the abdomen and pelvis with intravenous contrast. CTDI is 17 mGy and DLP is 1992.9 mGy-cm. This CT exam was performed using one or more of the following dose reduction techniques: automated exposure control, adjustment of the mA and/or kV according to patient size, and/or use of iterative reconstruction technique. COMPARISON: No relevant prior studies available. FINDINGS: ABDOMEN: Liver: Unremarkable. No mass. Gallbladder and bile ducts: Unremarkable. No calcified stones. No ductal dilation. Pancreas: Unremarkable. No mass. No ductal dilation. Spleen: Unremarkable. No splenomegaly. Adrenals: Unremarkable. No mass. Kidneys and ureters: Small left renal cyst. No obstructive uropathy. No obstructing renal or ureteral calculi. No hydronephrosis or hydroureter. Stomach and bowel: Bilateral fat-containing inguinal hernias. No obstruction or ileus. Left and sigmoid colon diverticulosis without evidence for diverticulitis. PELVIS: Appendix: No findings to suggest acute appendicitis. Bladder: Unremarkable. No mass. Reproductive: Unremarkable as visualized. ABDOMEN and PELVIS: Intraperitoneal space: No free air. No free fluid. Bones/joints: No acute fracture. Degenerative changes of the spine. Metal artifact from bilateral hip replacements. Soft tissues: Unremarkable. Vasculature: Atherosclerotic vascular calcifications. No abdominal aortic aneurysm. Lymph nodes: Unremarkable. No enlarged lymph nodes. IMPRESSION: No acute post-traumatic abnormality. Non-acute findings as noted above.
[2024-01-30] MEDS: ACET/COD 300 MG/30 MG STARTER PACK 6 TAB BTL PO STA (02:03)
[2024-01-30 02:10] VITALS: BP 157/77; PULSE 55; TEMP 98.2
== END 2024-01-30 02:09 | disposition home or self-care (01) ==
LOC: EC 18:18
DX: S22.060A Wedge compression fracture of T7-T8 vertebra, initial encounter for closed fracture (principal); S20.211A Contusion of right front wall of thorax, initial encounter; Z91.09 Other allergy status, other than to drugs and biological substances; Z87.891 Personal history of nicotine dependence; W18.30XA Fall on same level, unspecified, initial encounter
CPT/HCPCS: 99285; 96374; 96375; 96376; 96361; 36415; 80048; 85025; 85610; 85730; 71101; 72100; 71260; 74177; J2270; J1170; Q9967

== ENCOUNTER 2024-04-26 22:45 | Emergency (ER) | payer MEDICARE ==
--- NOTE | 2024-04-26 23:27 | ED ---
Abdominal Pain HPI - General Chief Complaint: Abdominal Pain Stated Complaint: back pain,constipation Time Seen by Provider: 04/26/24 22:53 Source: patient, RN notes reviewed Mode of arrival: ambulatory Limitations: no limitations - History of Present Illness Initial Comments: This is a 74-year-old male who presents to the emergency department for abdomi nal pain. Patient is on high dose narcotics, including morphine and Imbler, due to severe pain experienced from multiple myeloma. As result he has been struggling with constipation. It has been over a week since he had his last bowel movement. He has been trying essentially every [id number] option aside from an enema. States that those options are usually effective, and this is the first time that has not been the case. States that he is now passing very little gas and he has associated nausea. Denies any history of bowel obstructions. MD Complaint: abdominal pain - Related Data Home Medications Medication Instructions Recorded Confirmed Levothyroxine Sodium [Synthroid] 200 mcg PO QAM 04/06/17 10/19/23 Acetaminophen [Tylenol] 650 mg PO Q4H PRN 10/19/23 10/19/23 Vit C/E/Zn/Coppr/Lutein/Zeaxan 1 cap PO DAILY 10/19/23 10/19/23 [Preservision Areds 2 Softgel] Previous Rx's Medication Instructions Recorded oxyCODONE HCL [OxyIR] 5 mg PO Q6H PRN 3 Days #6 tab 10/20/23 Lidocaine 5% Patch [Lidoderm 5% 1 patch TOPICAL DAILY PRN 14 Days 01/30/24 Patch] #14 patch methocarbamoL [Robaxin-750] 1,500 mg PO TID PRN 7 Days #42 tab 01/30/24 Lactulose 10 - 20 gm PO DAILY PRN #473 ml 04/27/24 Methylnaltrexone [place] [Relistor] 450 mg PO DAILY #90 tablet 04/27/24 Allergies Allergy/AdvReac Type Severity Reaction Status Date / Time environmental AdvReac Unknown Uncoded 04/26/24 22:51 Review of Systems ROS Statement: Those systems with pertinent positive or pertinent negative responses have been documented in the HPI. ROS Other: All systems not noted in ROS Statement are negative. Past Medical History Past Medical History: Thyroid Disorder Additional Past Medical History / Comment(s): sinus problems, hypothyroidism History of Any Multi-Drug Resistant Organisms: None Reported Past Surgical History: Appendectomy, Joint Replacement Additional Past Surgical History / Comment(s): COLONOSCOPY. RT TKA WITH REVISION. BILAT LIVIER. SINUS SX Past Anesthesia/Blood Transfusion Reactions: No Reported Reaction Past Psychological History: No Psychological Hx Reported Smoking Status: Former smoker Past Alcohol Use History: None Reported Past Drug Use History: None Reported - Past Family History Sister(s) Family Medical History: COPD General Exam Limitations: no limitations General appearance: alert, in no apparent distress Head exam: Present: atraumatic, normocephalic, normal inspection Respiratory exam: Present: normal lung sounds bilaterally. Absent: respiratory distress, wheezes, rales, rhonchi, stridor Cardiovascular Exam: Present: regular rate, normal rhythm, normal heart sounds. Absent: systolic murmur, diastolic murmur, rubs, gallop, clicks GI/Abdominal exam: Present: distended, diminished bowel sounds Neurological exam: Present: alert, oriented X3, CN II-XII intact Psychiatric exam: Present: normal affect, normal mood Skin exam: Present: warm, dry, intact, normal color. Absent: rash Course Vital Signs 04/26/24 04/27/24 04/27/24 22:47 00:07 01:16 Temperature 98.5 F Pulse Rate 96 77 97 Respiratory 20 18 18 Rate Blood Pressure 147/89 147/85 131/81 O2 Sat by Pulse 95 97 95 Oximetry 04/27/24 03:25 Temperature 97.8 F Pulse Rate 100 Respiratory 18 Rate Blood Pressure 142/78 O2 Sat by Pulse 95 Oximetry Medical Decision Making - Medical Decision Making This is a 74 year old male who presents to the emergency department for abdominal pain and constipation. Was pt. sent in by a medical professional or institution? @ -No Did you speak to anyone other than the patient for history? @ -No Did you review nursing and triage notes? @ -Yes, and I agree, it is accurate with regards to the patient's symptoms. Were old charts reviewed? @ -No Differential Diagnosis? @ -Differential Abdominal Pain Men: Appendicitis, cholecystitis, diverticulosis, ischemic bowel, pancreatitis, hepatitis, UTI, gastroenteritis, AAA, incarcerated hernia, bowel obstruction, constipation, inflammatory bowel, hepatitis, peptic ulcer disease, splenic infarction, perforated viscus, testicular torsion, this is not meant to be an all-inclusive list EKG interpreted by me (3pts min.)? @ -Not obtained X-rays interpreted by me (1pt min.)? @ -Not obtained CT interpreted by me (1pt min.)? @ -CT scan of the abdomen and pelvis obtained. My interpretation identifies no evidence of bowel obstruction. U/S interpreted by me (1pt. min.)? @ -Not obtained What testing was considered but not performed? (CT, X-rays, U/S, labs)? Why? @ -None What meds were considered but not given? Why? @ -None Did you discuss the management of the patient with other professionals? @ -No Did you reconcile home meds? @ -No Was smoking cessation discussed for >3mins.? @ -No Was critical care preformed (if so, how long)? @ -No Were there social determinants of health that impacted care today? How? (Homelessness, low income, unemployed, alcoholism, drug addiction, transporta tion, low edu. Level, literacy, decrease access to med. care, fpc, rehab)? @ -No Was there de-escalation of care discussed even if they declined? (Discuss DNR or withdrawal of care, Hospice)? @ -No What co-morbidities impacted this encounter? (DM, HTN, Smoking, COPD, CAD, Cancer, CVA, Hep., AIDS, mental health diagnosis, sleep apnea, morbid obesity)? @ -Multiple myeloma Was patient admitted / discharged? @ -Discharged. Lab work relatively unremarkable. CT scan of the abdomen and pelvis demonstrates moderate to severe proximal colonic fecal stasis and/or constipation. There is more mild distal colonic fecal stasis and/or constipation. No bowel obstruction identified. Findings reviewed with the humza peña. He was first given a Fleet enema without much relief. We then tried a milk molasses enema and the patient was able to produce a large bowel movement. States that he did feel much improved afterwards. He was given a dose of IM Relistor as well for the opioid-induced constipation aspect. Patient sent home with [place] to use on another day to see if that can offer him further benefit. When discussing options for outpatient management, we discussed that the Relistor, which treats opioid-induced constipation, does come in pill form. However, this is often fairly expensive. If his insurance does not cover it he should look into prescription savings options. Prescription for lactulose was provided as well to see if that is more beneficial than the other medications he has tried. Patient discharged home in stable condition. Case discussed with ED attending Dr. Barragan. Return precautions reviewed in depth, the patient is instructed to return to the emergency department with any new, worsening, or concerning symptoms. Patient verbalized understanding. Undiagnosed new problem with uncertain prognosis? @ -None Drug Therapy requiring intensive monitoring for toxicity (Heparin, Nitro, Insulin, Cardizem)? @ -None Were any procedures done? @ -None Diagnosis/symptom? @ -Constipation/fecal stasis Acute, or Chronic, or Acute on Chronic? @ -Acute Uncomplicated (without systemic symptoms) or Complicated (systemic symptoms)? @ -Uncomplicated Side effects of treatment? @ -None Exacerbation, Progression, or Severe Exacerbation] @ -Not applicable Poses a threat to life or bodily function? @ -Not at this time, however if it does not get treated it can cause more severe health consequences. - Lab Data Result diagrams: 04/26/24 23:16 04/26/24 23:16 Lab Results 04/26/24 04/26/24 04/26/24 Range/Units 23:16 23:16 23:16 WBC 3.3 L (3.8-10.6) k/uL RBC 3.21 L (4.30-5.90) m/uL Hgb 11.0 L (13.0-17.5) gm/dL Hct 32.3 L (39.0-53.0) % MCV 100.6 H (80.0-100.0) fL MCH 34.3 (25.0-35.0) pg MCHC 34.1 (31.0-37.0) g/dL RDW 15.0 (11.5-15.5) % Plt Count 139 L (150-450) k/uL MPV 8.7 Neutrophils % 88 % Lymphocytes % 7 % Monocytes % 4 % Eosinophils % 0 % Basophils % 0 % Neutrophils # 2.9 (1.3-7.7) k/uL Lymphocytes # 0.2 L (1.0-4.8) k/uL Monocytes # 0.1 (0-1.0) k/uL Eosinophils # 0.0 (0-0.7) k/uL Basophils # 0.0 (0-0.2) k/uL Macrocytosis Slight Sodium 131 L (137-145) mmol/L Potassium 4.7 (3.5-5.1) mmol/L Chloride 88 L (98-107) mmol/L Carbon Dioxide 22 (22-30) mmol/L Anion Gap 21 mmol/L BUN 27 H (9-20) mg/dL Creatinine 1.03 (0.66-1.25) mg/dL Est GFR (CKD-EPI)AfAm 82 (>60 ml/min/1.73 sqM) Est GFR (CKD-EPI)NonAf 71 (>60 ml/min/1.73 sqM) Glucose 102 H (74-99) mg/dL Plasma Lactic Acid Fritz 1.2 (0.7-2.0) mmol/L Calcium 10.3 H (8.4-10.2) mg/dL Magnesium 2.3 (1.6-2.3) mg/dL Total Bilirubin 1.0 (0.2-1.3) mg/dL AST 22 (17-59) U/L ALT 12 (4-49) U/L Alkaline Phosphatase 69 (38-126) U/L Total Protein 10.3 H (6.3-8.2) g/dL Albumin 4.2 (3.5-5.0) g/dL Amylase 51 (30-110) U/L Lipase 85 (23-300) U/L - Radiology Data Radiology results: report reviewed, image reviewed Disposition Clinical Impression: Therapeutic opioid induced constipation Disposition: HOME SELF-CARE Instructions (If sedation given, give patient instructions): Constipation (ED) Additional Instructions: Return to the emergency department with any new, worsening, or concerning symptoms. Try taking the relistor. This will be taken as 3 tablets once daily in the morning with water on an empty stomach at least 30 minutes before your first meal of the day. If your insurance does not cover this, look into prescription savings cards which can be offered by the medication videotape editor. See if your pharmacist is aware of this as well. You can also try taking the lactulose in place of the MiraLAX/polyethylene glycol daily to see if that is more effective. Follow up with your primary care provider in 1-2 days. Prescriptions: Lactulose 10 - 20 gm PO DAILY PRN #473 ml PRN Reason: Constipation Methylnaltrexone [place] [Relistor] 450 mg PO DAILY #90 tablet Is patient prescribed a controlled substance at d/c from ED?: No Referrals: Gualberto Echols DO [Primary Care Provider] - 1-2 days Time of Disposition: 03:18
--- NOTE | 2024-04-26 23:31 | CT ---
EXAMINATION TYPE: CT abdomen pelvis wo con DATE OF EXAM: 04/26/2024 HISTORY: Pt states that he has been taking pain meds for his CA(Multiple Myeloma) and states that he is now constipated. Pt states last bowel movement was a week ago. CT DLP: 1194 mGycm. Automated Exposure Control for Dose Reduction was Utilized. TECHNIQUE: CT scan of the abdomen and pelvis is performed without oral or IV contrast. COMPARISON: Prior CT January 29, 2024 FINDINGS: Within the limitations of a non-contrast study, the following observations are made. LUNG BASES: Coronary artery calcification is redemonstrated. Slightly more prominent focal consolidat ion in the lingula axial image 16. LIVER/GB: No significant abnormality is appreciated. PANCREAS: No significant abnormality is seen. SPLEEN: No significant abnormality is seen. ADRENALS: No significant abnormality is seen. KIDNEYS: No significant abnormality is seen. BOWEL: Slight suboptimal evaluation without enteric contrast. No abnormal small or large bowel dilata tion. Moderate to severe fecal prominence in the right and transverse colon. Mild fecal prominence in the sigmoid rectal colon. Incidental small duodenal diverticulum. GENITAL ORGANS: Suboptimal evaluation of prostate. LYMPH NODES: No greater than 1cm abdominal or pelvic lymph nodes are appreciated. OSSEOUS STRUCTURES: Metallic hardware from bilateral hip arthroplasty is redemonstrated causing strea k artifact somewhat limiting evaluation of pelvic structures. Multilevel facet arthropathy in the lum bar spine. OTHER: No significant additional abnormality is seen. IMPRESSION: Moderate to severe proximal colonic fecal stasis and/or constipation. More mild distal co lonic fecal stasis and/or constipation. No bowel obstruction.
[2024-04-26] MEDS: KETOROLAC 15 MG/ML 1 ML VIAL IVP STA (23:36)
[2024-04-26 23:43] LABS: Basophils % (A) 0 %; Eosinophils % (A) 0 %; HCT 32.3 % (39.0-53.0); Lymphocytes # (A) 0.2 k/uL (1.0-4.8); Lymphocytes % (A) 7 %; MCH 34.3 pg (25.0-35.0); MCHC 34.1 g/dL (31.0-37.0); MCV 100.6 fL (80.0-100.0); Macrocytosis Slight; Mean Platelet Volume 8.7; Monocytes # (A) 0.1 k/uL (0-1.0); Monocytes % (A) 4 %; Neutrophils # (A) 2.9 k/uL (1.3-7.7); Neutrophils % (A) 88 %; Platelet Count 139 k/uL (150-450); RBC 3.21 m/uL (4.30-5.90); WBC 3.3 k/uL (3.8-10.6)
[2024-04-26] MEDS: NA PHOS,M-B/NA PHOS,DI-BA 133 ML ENEMA RECTAL ONE (23:49)
[2024-04-27 00:12] VITALS: RESP 18
[2024-04-27 00:15] LABS: ALT 12 U/L (4-49); AST 22 U/L (17-59); African American GFR (CKD) 82 (>60 ml/min/1.73 sqM); Albumin 4.2 g/dL (3.5-5.0); Alkaline Phosphatase 69 U/L (38-126); Amylase 51 U/L (30-110); Anion Gap 21 mmol/L; Blood Urea Nitrogen 27 mg/dL (9-20); Calcium 10.3 mg/dL (8.4-10.2); Carbon Dioxide 22 mmol/L (22-30); Chloride 88 mmol/L (98-107); Glucose 102 mg/dL (74-99); Lipase 85 U/L (23-300); Magnesium 2.3 mg/dL (1.6-2.3); Non-African American GFR(CKD) 71 (>60 ml/min/1.73 sqM); Potassium 4.7 mmol/L (3.5-5.1); Sodium 131 mmol/L (137-145); Total Protein 10.3 g/dL (6.3-8.2)
[2024-04-27] MEDS: METHYLNALTREXONE BROMIDE 12 MG/0.6 ML VIAL SQ ONE (02:22)
[2024-04-27 03:29] VITALS: BP 142/78; PULSE 100; TEMP 97.8
[2024-04-27] MEDS ORDERED: PEG 3350 (236 GM/BTL) + LYTES 4,000 ML BOTTLE PO ONE (04:00)
== END 2024-04-27 03:55 | disposition home or self-care (01) ==
LOC: EC 22:45
DX: R10.9 Unspecified abdominal pain (principal); T40.2X5A Adverse effect of other opioids, initial encounter; Z87.891 Personal history of nicotine dependence; Z88.8 Allergy status to other drugs, medicaments and biological substances
CPT/HCPCS: 36415; 74176; 80053; 82150; 83605; 83690; 83735; 85025; 96372; 96374; 99284